=== PATIENT | female | born 1990 | race Caucasian/White ===

== ENCOUNTER 2017-01-21 11:04 | Outpatient (CLI) | payer OTHER | END 2017-01-21 11:05 | disposition home or self-care (01) | LOC: LAB 11:04 | PROVIDERS: ATTEND Internal Medicine | DX: Z02.1 Encounter for pre-employment examination (principal) | CPT/HCPCS: 36415 ==

== ENCOUNTER 2017-01-28 10:39 | Outpatient (CLI) | payer OTHER | END 2017-01-28 10:40 | disposition home or self-care (01) | LOC: LAB 10:39 | PROVIDERS: ATTEND Internal Medicine | DX: Z28.3 Underimmunization status (principal) | CPT/HCPCS: 36415; 86735; 86762; 86765 ==

== ENCOUNTER 2018-01-15 14:29 | Outpatient (CLI) | payer SELFPAY | END 2018-01-15 14:30 | disposition home or self-care (01) | LOC: LAB 14:29 | PROVIDERS: ATTEND Emergency Medicine | DX: Z11.1 Encounter for screening for respiratory tuberculosis (principal) | CPT/HCPCS: 36415; 81599; 86480 ==

== ENCOUNTER 2018-06-13 08:00 | Outpatient (CLI) | payer BC | END 2018-06-13 23:59 | disposition home or self-care (01) | LOC: EDBD → EDSEX → LAB.R 08:00 → MERGE 14:10 → LAB.R 23:59 | PROVIDERS: ATTEND Internal Medicine | DX: J02.9 Acute pharyngitis, unspecified (principal) | CPT/HCPCS: 87070; 87430 ==

== ENCOUNTER 2019-02-24 07:16 | Outpatient (CLI) | payer BC ==
--- NOTE | 2019-02-26 07:34 | Ultrasound Report ---
Reason: POSITIVE TEST Procedure Date: 02/24/2019 Accession Number: [id number] / [id number] Procedure: US - OB First Trimester CPT Code: FULL RESULT: EXAM: FIRST TRIMESTER OBSTETRIC ULTRASOUND (Less than 11 weeks) EXAM DATE: 02/24/2019 07:21 AM. CLINICAL HISTORY: Positive test. LMP: 12/22/2018. COMPARISONS: None. TECHNIQUE: Transabdominal and transvaginal ultrasound examination with static image documentation. CLINICAL DATES: EGA 9 weeks 1 day with HENRIQUE 09/28/2019 based on LMP of 12/22/2018. ASSESSMENT: Gestational Sac: Single intrauterine. Embryo: CRL (crown-rump length) 7.7 mm = 6 weeks 5 days with an HENRIQUE of 10/15/2019. Cardiac activity: 131 beats per minute. Yolk sac: 3.2 mm. Amniotic fluid: Not accurately assessed at this gestational age. Early placenta: Not visible at this gestational age. Other: No perigestational fluid collection demonstrated. MATERNAL STRUCTURES: Uterus: Anteverted. Unremarkable. Cervix: Closed. Right Ovary/Adnexa: The ovary measures 4.2 x 2.2 x 2.7 cm, volume 13.0 cc. Unremarkable. Left Ovary/Adnexa: The ovary measures 3.5 x 2.2 x 2.1 cm, volume 8.5 cc. Unremarkable. Free Fluid: None. Other: None. IMPRESSION: 1. Single viable intrauterine at EGA 6 weeks 5 days with HENRIQUE 10/15/2019 based on crown-rump length, which is discordant with clinical dates. 2. Assigned dating is HENRIQUE 10/15/2019 based on current ultrasound. 3. No subchorionic hemorrhage or other complications. 4. Normal bilateral ovaries and adnexa. RADIA
== END 2019-02-24 07:17 | disposition home or self-care (01) ==
LOC: DI 07:16
PROVIDERS: ATTEND Nurse Practitioner Obstetrics & Gynecology
DX: Z32.01 Encounter for pregnancy test, result positive (principal)
CPT/HCPCS: 76801

== ENCOUNTER 2019-03-09 07:00 | Outpatient (CLI) | payer BC ==
[2019-03-09 14:53] LABS: MUDS CUTOFF CONCENTRATIONS CUTOFF CONC BELOW:
[2019-03-09 15:04] LABS: BILIRUBIN,URINE NEGATIVE (NEGATIVE); GLUCOSE, URINE (UA) NEGATIVE (NEGATIVE); KETONES,URINE (UA) NEGATIVE (NEGATIVE); LEUKOCYTE ESTERASE, URINE NEGATIVE (NEGATIVE); NITRITE,URINE NEGATIVE (NEGATIVE); OCCULT BLOOD,URINE NEGATIVE (NEGATIVE); PROTEIN,URINE NEGATIVE (NEGATIVE); UROBILINOGEN,URINE 0.2 (NORMAL) E.U./dL (NORMAL)
[2019-03-09 15:05] LABS: CLARITY,URINE CLEAR (CLEAR)
[2019-03-09 15:32] LABS: AMPHETAMINE SCREEN,URINE NEGATIVE (NEGATIVE); BENZODIAZEPINES SCREEN, URINE NEGATIVE (NEGATIVE); COCAINE SCREEN URINE NEGATIVE (NEGATIVE); METHADONE SCREEN, URINE NEGATIVE (NEGATIVE); METHAMPHETAMINES SCREEN, URINE NEGATIVE (NEGATIVE); OPIATE SCREEN, URINE NEGATIVE (NEGATIVE); OXYCODONE SCREEN, URINE NEGATIVE (NEGATIVE); PROPOXYPHENE SCREEN, URINE NEGATIVE (NEGATIVE); TRICYCLIC ANTIDEPRESSANT,URINE NEGATIVE (NEGATIVE)
[2019-03-09 15:44] LABS: BACTERIA,URINE Few /HPF (None Seen); RBC,URINE 0-5 /HPF (0-5); SQUAMOUS EPITHELIAL CELL,UR MANY Squamous (<= Few)
[2019-03-09 15:45] LABS: MUCUS,URINE Few Strands
== END 2019-03-09 23:59 | disposition home or self-care (01) ==
LOC: LAB.R 07:00
PROVIDERS: ATTEND Nurse Practitioner Obstetrics & Gynecology
DX: Z36.89 Encounter for other specified antenatal screening (principal)
CPT/HCPCS: 80306; 81001; 87086

== ENCOUNTER 2019-04-06 18:45 | Outpatient (CLI) | payer BC ==
[2019-04-06 19:55] LABS: BASOPHILS % (AUTO) 0.3 %; EOSINOPHILS # (AUTO) 0.2 10^3/uL (0.0-0.7); HGB - HEMOGLOBIN 12.4 g/dL (12.0-16.0); LYMPHOCYTES # (AUTO) 3.1 10^3/uL (1.5-3.5); LYMPHOCYTES % (AUTO) 41.7 %; MEAN CORPUSCULAR HEMOGLOBIN 29.5 pg (27.0-31.0); MEAN CORPUSCULAR HGB CONC 33.4 g/dL (32.0-36.0); MEAN CORPUSCULAR VOLUME 88.3 fL (81.0-99.0); MEAN PLATELET VOLUME 10.6 fL (7.9-10.8); MONOCYTES # (AUTO) 0.4 10^3/uL (0.0-1.0); NEUTROPHILS # (AUTO) 3.7 10^3/uL (1.5-6.6); NEUTROPHILS % (AUTO) 49.7 %; PLT - PLATELET COUNT 162 10^3/uL (130-450); RED CELL DISTRIBUTION WIDTH 12.7 % (12.0-15.0); WHITE BLOOD COUNT 7.3 x10^3/uL (4.8-10.8)
[2019-04-08 12:31] LABS: HEPATITIS B SURFACE ANTIGEN NON-REACTIVE (NON-REACTIVE)
[2019-04-08 15:31] LABS: HIV AG/AB 4TH GEN NON-REACTIVE (NON-REACTIVE)
== END 2019-04-06 18:46 | disposition home or self-care (01) ==
LOC: LAB 18:45
PROVIDERS: ATTEND Nurse Practitioner Obstetrics & Gynecology
DX: Z82.79 Family history of other congenital malformations, deformations and chromosomal abnormalities (principal); Z36.89 Encounter for other specified antenatal screening
CPT/HCPCS: 36415; 81599; 85025; 86592; 86762; 86850; 86900; 86901; 87340; 87389; 87522

== ENCOUNTER 2019-05-01 17:43 | Outpatient (CLI) | payer BC | END 2019-05-01 17:44 | disposition home or self-care (01) | LOC: LAB 17:43 | PROVIDERS: ATTEND Nurse Practitioner Obstetrics & Gynecology | DX: Z82.79 Family history of other congenital malformations, deformations and chromosomal abnormalities (principal); Z36.89 Encounter for other specified antenatal screening | CPT/HCPCS: 36415; 81511; 81599 ==

== ENCOUNTER 2019-06-09 09:35 | Outpatient (CLI) | payer BC ==
--- NOTE | 2019-06-09 11:39 | Ultrasound Report ---
Reason: Z36.89 Procedure Date: 06/09/2019 Accession Number: [id number] / [id number] Procedure: US - OB Detailed Eval CPT Code: Final Report FULL RESULT: EXAM: COMPLETE OBSTETRICAL ULTRASOUND EXAM DATE: 06/09/2019 11:13 AM. CLINICAL HISTORY: anatomic survey. COMPARISON: OB FIRST TRIMESTER 02/24/2019 7:21 AM. TECHNIQUE: Real-time sonographic evaluation of the fetus performed by the blunger. Multiple business office representative static images were saved for review. DATING: Established EGA 24 weeks 1 day with HENRIQUE 09/28/2019 based on provided working due date. EGA 21 weeks 5 days with HENRIQUE 10/15/2019 based on first ultrasound. EGA 22 weeks 0 days with HENRIQUE 10/13/2019 based on the current ultrasound. GENERAL EVALUATION Thrasher . Cardiac activity: 155 bpm. movement: Visualized. Presentation: Cephalic. Placenta: Posterior position. No evidence for previa. Umbilical cord: 3 vessel cord. Central placental cord origin. Amniotic fluid: Subjectively normal. MVP 4.4 cm with JACK 12.7 cm. BIOMETRY Bi-Parietal Diameter (BPD): 5.2 cm, 21 weeks 5 days Head Circumference (HC): 19.6 cm, 21 weeks 6 days Abdominal Circumference (AC): 17.1 cm, 22 weeks 0 days Femur Length (FL): 3.8 cm, 22 weeks 2 days Estimated Weight: 474 g, 63rd percentile for 24 weeks 1 day. ANATOMY The intracranial structures, profile, face/nose/lips, spine, 4 chamber heart and outflow tracts, stomach, abdominal wall and cord insertion, diaphragm, kidneys, bladder, and extremities were visualized and demonstrate no abnormality. MATERNAL STRUCTURES Uterus: Unremarkable. Cervix: Long and closed. Transabdominal length 4.6 cm. Right ovary/adnexa: Unremarkable. Left ovary/adnexa: Unremarkable. Free fluid: None. IMPRESSION: 1. Thrasher live intrauterine with gestational age 24 weeks 1 day based on provider stated working due date. 2. Estimated weight is within expected limits for assigned dating. 3. Normal anatomic survey. No anatomic abnormalities are detected at this time. RADIA
== END 2019-06-09 09:36 | disposition home or self-care (01) ==
LOC: DI 09:35
PROVIDERS: ATTEND Nurse Practitioner Obstetrics & Gynecology
DX: Z36.89 Encounter for other specified antenatal screening (principal)
CPT/HCPCS: 76811

== ENCOUNTER 2019-07-28 10:38 | Outpatient (CLI) | payer BC ==
[2019-07-28 12:38] LABS: HGB - HEMOGLOBIN 12.9 g/dL (12.0-16.0); MEAN CORPUSCULAR HEMOGLOBIN 31.1 pg (27.0-31.0); MEAN CORPUSCULAR HGB CONC 33.6 g/dL (32.0-36.0); MEAN CORPUSCULAR VOLUME 92.5 fL (81.0-99.0); MEAN PLATELET VOLUME 11.4 fL (7.9-10.8); RED BLOOD COUNT 4.15 10^6/uL (4.20-5.40); RED CELL DISTRIBUTION WIDTH 13.3 % (12.0-15.0)
== END 2019-07-28 23:59 | disposition home or self-care (01) ==
LOC: LAB.WCP 10:38
PROVIDERS: ATTEND Nurse Practitioner Obstetrics & Gynecology
DX: Z36.89 Encounter for other specified antenatal screening (principal)
CPT/HCPCS: 36415; 82950; 85027; 86850

== ENCOUNTER 2019-09-16 15:43 | Outpatient (CLI) | payer BC ==
[2019-09-16 22:02] LABS: TRICHOMONAS VAGINALIS DNA NEGATIVE (NEGATIVE)
== END 2019-09-16 23:59 | disposition home or self-care (01) ==
LOC: LAB.R 15:43
PROVIDERS: ATTEND Advanced Practice Midwife
DX: Z34.90 Encounter for supervision of normal pregnancy, unspecified, unspecified trimester (principal); Z36.85 Encounter for antenatal screening for Streptococcus B
CPT/HCPCS: 87081; 87491; 87591; 87661; 87797

== ENCOUNTER 2019-10-13 09:58 | Outpatient (CLI) | payer BC ==
[2019-10-13 11:47] LABS: BASOPHILS % (AUTO) 0.3 %; LYMPHOCYTES % (AUTO) 26.7 %; MEAN CORPUSCULAR HEMOGLOBIN 29.8 pg (27.0-31.0); MEAN CORPUSCULAR VOLUME 90.2 fL (81.0-99.0); MEAN PLATELET VOLUME 11.9 fL (7.9-10.8); MONOCYTES % (AUTO) 5.3 %; PLT - PLATELET COUNT 125 10^3/uL (130-450); RED CELL DISTRIBUTION WIDTH 13.2 % (12.0-15.0); WHITE BLOOD COUNT 7.5 x10^3/uL (4.8-10.8)
[2019-10-13 11:49] LABS: ABNORMAL LYMPHS % (MANUAL) 0 %
[2019-10-13 11:55] LABS: CREATININE,URINE 75.6 mg/dL; PROTEIN/CREATININE RATIO,URINE 0.2 (<=0.2)
[2019-10-13 11:56] LABS: ALBUMIN 3.4 g/dL (3.2-5.5); ALBUMIN/GLOBULIN RATIO 1.1 (1.0-2.2); BILIRUBIN,TOTAL 1.4 mg/dL (0.2-1.0); CALCIUM 9.3 mg/dL (8.5-10.3); CREATININE 0.6 mg/dL (0.4-1.0); TOTAL PROTEIN 6.6 g/dL (6.7-8.2); URIC ACID 7.1 mg/dL (2.6-7.2)
[2019-10-13 12:19] LABS: BAND NEUTROPHILS % (MANUAL) 1 %; DIFFERENTIAL COMMENT MANUAL DIFFERENTIAL; EOSINOPHILS # (MANUAL) 0.2 10^3/uL (0-0.7); LYMPHOCYTES # (MANUAL) 2.1 10^3/uL (1.5-3.5); LYMPHOCYTES % (MANUAL) 28 %; MONOCYTES # (MANUAL) 0.4 10^3/uL (0.0-1.0); PLATELET ESTIMATE, MANUAL NORMAL (130-450,000) (NORMAL); PLATELET MORPHOLOGY NORMAL APPEARANCE (NORMAL); RBC MORPHOLOGY (MULTIPLE) NORMAL APPEARANCE (NORMAL)
[2019-10-13 13:06] VITALS: BP 126/81
--- NOTE | 2019-10-13 17:38 | Ultrasound Report ---
Reason: Elevated BP in office, drop in growth Procedure Date: 10/13/2019 Accession Number: [id number] / [id number] Procedure: US - OB Biophysical Profile CPT Code: Final Report FULL RESULT: PROCEDURE: OB Biophysical Profile INDICATIONS: Elevated BP in office, drop in growth OUTSIDE/PRIOR DATING DATA: Last menstrual period (LMP): 12/22/2018. LMP-based estimated date of delivery (HENRIQUE): 09/28/2019. First dating scan (date and location): 02/24/2019. Estimated date of delivery (HENRIQUE) from first dating scan: 10/15/2019. TECHNIQUE: Real-time scanning was performed of the fetus, with image documentation and biometric measurements. Biophysical profile was also obtained. COMPARISON: 06/09/2019, 02/24/2019. FINDINGS: General: A single living intrauterine gestation is present. Presentation: Vertex, with spine to maternal left. Placenta: Placental position is posterior, without previa. Amniotic fluid index: 5 cm, at the 1st percentile for gestational age. heart rate: 141 beats per minute. Maternal cervical canal: Not well seen. biometrics: Biparietal diameter: 9.6 cm, 39 weeks 2 days Head circumference: 34.5 cm, 39 weeks 6 days Abdominal circumference: 35.7 cm, 39 weeks 4 days Femur length: 7.1 cm, 36 weeks 3 days Estimated gestational age from initial scan: 39 weeks 5 days Composite gestational age from present scan: 30 weeks 6 days Estimated weight and percentile: 3006 and 47 g, 57th percentile Measurement variability in biometric dating: +/- 10 days from 12-20 weeks gestation, +/- 2 weeks from 20-30 weeks gestation, +/- 3 weeks at 30 weeks gestation or later. Biophysical profile: Tone: 2 points. Movement: 2 points. Respiration: 2 points. Largest pocket of fluid: 2 points, largest pocket 2.8 cm. IMPRESSION: 1. Single living intrauterine demonstrating appropriate interval growth with estimated weight at the 57th percentile. 2. Biophysical profile score of 8/8. 3. Decreased amniotic fluid index measuring approximately 5 cm. Recommend correlation clinically. Reviewed by: Moncho Patel MD on 10/13/2019 12:39 PM PDT Approved by: Moncho Patel MD on 10/13/2019 12:39 PM PDT Station ID: [id number]
--- NOTE | 2019-10-13 17:43 | Ultrasound Report ---
Reason: Elevated BP in office, drop in growth Procedure Date: 10/13/2019 Accession Number: [id number] / [id number] Procedure: US - OB F/U or Repeat CPT Code: Final Report FULL RESULT: PROCEDURE: OB Biophysical Profile INDICATIONS: Elevated BP in office, drop in growth OUTSIDE/PRIOR DATING DATA: Last menstrual period (LMP): 12/22/2018. LMP-based estimated date of delivery (HENRIQUE): 09/28/2019. First dating scan (date and location): 02/24/2019. Estimated date of delivery (HENRIQUE) from first dating scan: 10/15/2019. TECHNIQUE: Real-time scanning was performed of the fetus, with image documentation and biometric measurements. Biophysical profile was also obtained. COMPARISON: 06/09/2019, 02/24/2019. FINDINGS: General: A single living intrauterine gestation is present. Presentation: Vertex, with spine to maternal left. Placenta: Placental position is posterior, without previa. Amniotic fluid index: 5 cm, at the 1st percentile for gestational age. heart rate: 141 beats per minute. Maternal cervical canal: Not well seen. biometrics: Biparietal diameter: 9.6 cm, 39 weeks 2 days Head circumference: 34.5 cm, 39 weeks 6 days Abdominal circumference: 35.7 cm, 39 weeks 4 days Femur length: 7.1 cm, 36 weeks 3 days Estimated gestational age from initial scan: 39 weeks 5 days Composite gestational age from present scan: 30 weeks 6 days Estimated weight and percentile: 3006 and 47 g, 57th percentile Measurement variability in biometric dating: +/- 10 days from 12-20 weeks gestation, +/- 2 weeks from 20-30 weeks gestation, +/- 3 weeks at 30 weeks gestation or later. Biophysical profile: Tone: 2 points. Movement: 2 points. Respiration: 2 points. Largest pocket of fluid: 2 points, largest pocket 2.8 cm. IMPRESSION: 1. Single living intrauterine demonstrating appropriate interval growth with estimated weight at the 57th percentile. 2. Biophysical profile score of 8/8. 3. Decreased amniotic fluid index measuring approximately 5 cm. Recommend correlation clinically. Reviewed by: Moncho Patel MD on 10/13/2019 1:01 PM PDT Approved by: Moncho Patel MD on 10/13/2019 1:01 PM PDT Station ID: [id number]
--- NOTE | 2019-10-14 17:16 | PROCEDURE REPORT ---
- HPI Diagnosis/Indication for NST: Other (29yo at 39.5 wks Size less than dates; low-normal baseline heartrate in office) Current EDU 10/15/19 Gestation 39 Weeks and 5 Days 2 Para 0 Vital Signs Temperature 36.8 C 10/13/19 10:06 Heart Rate 82 10/13/19 10:06 Respiratory Rate 18 10/13/19 10:06 Blood Pressure 123/88 H 10/13/19 10:06 O2 Saturation 98 10/13/19 10:06 Temperature 36.8 C 10/13/19 10:06 Heart Rate 83 10/13/19 13:06 Respiratory Rate 18 10/13/19 13:06 Blood Pressure 126/81 H 10/13/19 13:06 O2 Saturation 97 10/13/19 13:06 - NST Procedure NST Procedure Start Date 10/13/19 Start Time 10:04 Stop Time 10:42 Vibroacoustic Stimulation Used No Patient States Movement Yes - Results and Plan Findings/Impression: NST performed 10/13/2019 NST Read 10/13/2019 NST Impression: Reassuring Baseline 120s, mod variability, accels 15x15, no decels Plan: BPP with NST 12/18 Growth US reveals EFW 57% JACK 1% (5) - Oligohydramnios Recommended follow up within 48 hours
== END 2019-10-13 13:00 | disposition home or self-care (01) ==
LOC: WFO 09:58 → FBP 10:05 → WFO 13:00
PROVIDERS: ATTEND Advanced Practice Midwife
DX: O36.8330 Maternal care for abnormalities of the fetal heart rate or rhythm, third trimester, not applicable or unspecified (principal); O36.5930 Maternal care for other known or suspected poor fetal growth, third trimester, not applicable or unspecified; Z3A.39 39 weeks gestation of pregnancy
CPT/HCPCS: 36415; 59025; 76816; 76819; 80053; 82570; 84156; 84550; 85025

== ENCOUNTER 2019-10-15 10:08 | Outpatient (CLI) | payer BC ==
[2019-10-15 11:01] VITALS: BP 125/84
--- NOTE | 2019-10-15 13:34 | PROCEDURE REPORT ---
- HPI Diagnosis/Indication for NST: Oligohydramnios Current EDU 10/15/19 Gestation 40 Weeks and 0 Days 2 Para 0 Vital Signs Temperature 36.9 C 10/15/19 10:13 Heart Rate 92 10/15/19 10:13 Respiratory Rate 10/15/19 10:13 Blood Pressure 126/90 H 10/15/19 10:13 O2 Saturation 98 10/15/19 10:13 Temperature 36.9 C 10/15/19 10:13 Heart Rate 92 10/15/19 10:13 Respiratory Rate 10/15/19 10:13 Blood Pressure 125/84 H 10/15/19 10:48 O2 Saturation 98 10/15/19 10:13 - NST Procedure NST Procedure Start Date 10/15/19 Start Time 10:18 Stop Time 10:49 Vibroacoustic Stimulation Used No Patient States Movement Yes - Results and Plan Findings/Impression: 29yo at 40.0 wks gestation presents for follow up for Oligiohydramnios NST performed 10/15/2019 NST Read 10/15/2019 NST Impression: Reassuring Baseline 125s, mod variability, accels 15x15, no decels Plan: BPP with NST 12/18 Growth US reveals EFW 57% JACK 10.5 - Normal findings Recommended follow up at regular OB visit 10/19/2019
--- NOTE | 2019-10-16 14:31 | Ultrasound Report ---
Reason: oligohydramnios Procedure Date: 10/15/2019 Accession Number: [id number] / [id number] Procedure: US - OB Limited CPT Code: Final Report FULL RESULT: PROCEDURE: OB Limited INDICATIONS: oligohydramnios OUTSIDE/PRIOR DATING DATA: Last menstrual period (LMP): 12/22/2018. LMP-based estimated date of delivery (HENRIQUE): 09/18/2019. First dating scan (date and location): 02/24/2019. Estimated date of delivery (HENRIQUE) from first dating scan: 10/15/2019. TECHNIQUE: Real-time scanning was performed of the fetus, with image documentation. Endovaginal scanning: Not needed for this examination. COMPARISON: Prior OB ultrasound studies for this . FINDINGS: A single living intrauterine gestation is present. Presentation: Vertex spine maternal right Placenta: No placenta previa. Amniotic fluid index: 10.5 cm, normal for gestational age. heart rate: 136 beats per minutes. Maternal cervical canal: Not seen due to vertex presentation of the fetus. Estimated gestational age from initial scan: Term gestation. Biophysical profile: / possible points. IMPRESSION: Normal amniotic fluid volume, normal biophysical profile. Term gestation. Reviewed by: Axel Hernandez MD on 10/16/2019 2:30 PM PDT Approved by: Axle Hernandez MD on 10/16/2019 2:30 PM PDT Station ID: [id number]
--- NOTE | 2019-10-16 14:36 | Ultrasound Report ---
Reason: low JACK Procedure Date: 10/16/2019 Accession Number: [id number] / [id number] Procedure: US - OB Biophysical Profile CPT Code: Final Report FULL RESULT: PROCEDURE: OB Biophysical Profile INDICATIONS: low JACK OUTSIDE/PRIOR DATING DATA: Last menstrual period (LMP): 12/22/2018. LMP-based estimated date of delivery (HENRIQUE): 09/28/2019. First dating scan (date and location): 02/24/2019. Estimated date of delivery (HENRIQUE) from first dating scan: 10/15/2019. TECHNIQUE: Real-time scanning was performed of the fetus, with image documentation and biometric measurements. Biophysical profile was also obtained. Endovaginal scanning: Not needed COMPARISON: Prior OB ultrasound studies for this .. FINDINGS: General: A single living intrauterine gestation is present. Presentation: Vertex spine maternal right Amniotic fluid index: 10.5 cm, normal for gestational age. heart rate: 136 beats per minute. Maternal cervical canal: Not seen due to vertex presentation. Biophysical profile: Tone: 2 points. Movement: 2 points. Respiration: 2 points. Largest pocket of fluid: 2 points. IMPRESSION: Normal biophysical profile. Normal amniotic fluid. Reviewed by: Axel Hernandez MD on 10/16/2019 2:35 PM PDT Approved by: Axel Hernandez MD on 10/16/2019 2:35 PM PDT Station ID: [id number]
== END 2019-10-15 12:32 | disposition home or self-care (01) ==
LOC: WFO 10:08 → FBP 10:09 → WFO 12:32
PROVIDERS: ATTEND Advanced Practice Midwife
DX: O41.03X0 Oligohydramnios, third trimester, not applicable or unspecified (principal); Z3A.40 40 weeks gestation of pregnancy
CPT/HCPCS: 59025; 76815; 76819

== ENCOUNTER 2019-10-20 21:53 | Inpatient (IN) | payer BC ==
[2019-10-20] MEDS ORDERED: ONDANSETRON ODT 4 MG TABLET TL PRN ×3 (22:33→22:43)
[2019-10-20] MEDS ORDERED: fentaNYL 100 MCG/2 ML VIAL IVP PRN (23:13)
[2019-10-20] MEDS ORDERED: ONDANSETRON 4 MG/2 ML VIAL IVP PRN (23:13)
[2019-10-20] MEDS ORDERED: SODIUM CHLORIDE FLUSH 0.9% 10 ML SYRINGE IVP PRN (23:13)
[2019-10-20] MEDS ORDERED: LACTATED RINGERS 1,000 ML IV SCH (23:45)
[2019-10-21] LABS: BASOPHILS % (AUTO) 0.2 %; EOSINOPHILS # (AUTO) 0.1 10^3/uL (0.0-0.7); HGB - HEMOGLOBIN 15.3 g/dL (12.0-16.0); LYMPHOCYTES # (AUTO) 2.5 10^3/uL (1.5-3.5); LYMPHOCYTES % (AUTO) 18.6 %; MEAN CORPUSCULAR HEMOGLOBIN 31.2 pg (27.0-31.0); MEAN CORPUSCULAR HGB CONC 34.5 g/dL (32.0-36.0); MEAN CORPUSCULAR VOLUME 90.6 fL (81.0-99.0); MEAN PLATELET VOLUME 11.9 fL (7.9-10.8); MONOCYTES # (AUTO) 0.5 10^3/uL (0.0-1.0); MONOCYTES % (AUTO) 3.3 %; NEUTROPHILS # (AUTO) 10.3 10^3/uL (1.5-6.6); NEUTROPHILS % (AUTO) 76.1 %; PLT - PLATELET COUNT 141 10^3/uL (130-450); RED CELL DISTRIBUTION WIDTH 13.1 % (12.0-15.0); WHITE BLOOD COUNT 13.5 x10^3/uL (4.8-10.8)
[2019-10-21] MEDS ORDERED: OXYTOCIN/SODIUM CHLORIDE 500 ML IV ONE (00:33)
[2019-10-21] MEDS ORDERED: LIDOCAINE-MPF 1% 30 ML VIAL ONE (00:33)
[2019-10-21] MEDS ORDERED: SODIUM CHLORIDE FLUSH 0.9% 10 ML SYRINGE IVP SCH (01:00)
--- NOTE | 2019-10-21 01:52 | HISTORY & PHYSICAL EXAMINATION ---
Admit History - Visit Reason Visit Reason: Contractions - : 2 Parity: 0 Premature: 0 Ectopic: 0 : 1 Care: positive: [facility] Risk/History: positive: None Complications This : positive: None Smoking Status: Never smoker - Mother's Labs Mother's Blood Type: positive: O Mother's RH: positive: Positive GBS: positive: Group B Step Negative Rubella Status: positive: Immune - Other Maternal History Other Maternal History: Nancy is a 29yo at 40.5wks who presented with complaints of contractions Gestation was determined by US at 6.5wks disconcordant with LMP dating and gives HENRIQUE 10/14/2018 Ctx- every 2-4mins/FHTs 120s moderate variability, accels, no decels/+FM/-VB/-LOF Care- with [facility] and was adequate and uneventful complications- none OB Hx G1: 2014 TAB G2- Current Medications- ZYRTEC ALLERGY 10 MG ORAL CAPSULE (CETIRIZINE HCL) ; Route: ORAL PRE-MARIANO FORMULA ORAL TABLET ( [id number]) Take one tablet by mouth once a day; Route: ORAL Allergies PENICILLIN V POTASSIUM (Critical) DOXYCYCLINE (Critical) SULFA (Severe) Medical History non contributory Surgical History tonsilectomy Family History Uncle with Down's Syndrome Social History- never smoker, no etoh, spouse/fob- present and supportive Labs *O positive * rubella immune * Genetic- Serum integrated screen- negative * GBS- negative * Glucola- 95 Immunizations *TDAP 07/28/2019 SVE AT 0100 6/90/0/soft/ant/intact Vertex by digital exam Assessment 29yo at 40.5wks gestation in active labor Plan Admit Evens&D Monitoring- Intermittent per protocol Comfort measures available- whirlpool tub, fentanyl, and epidural Diet/Activity- per pt preference Anticipate Review of Systems - Constitutional Constitutional: reports: Fatigue. denies: Malaise, Weakness, Diaphoresis - Eyes Eyes: denies: Pain, Spots in vision, Field loss, Dipolpia - Ears, Nose & Throat Ears, Nose & Throat: denies: Hearing loss, Vertigo, Nasal discharge, Nasal congestion - Gastrointestinal Gastrointestinal: reports: Diarrhea, Nausea, Vomiting. denies: Constipation - Genitourinary Genitourinary: denies: Dysuria, Frequency, Hematuria, Flank pain - Musculoskeletal Musculoskeletal: reports: Back pain - Integumentary Integumentary: denies: Rash, Pruritis, Lesions - Neurological Neurological: denies: Headache, Dizziness, Numbness - Psychiatric Psychiatric: denies: Depression, Suicidal - Endocrine Endocrine: denies: Polyuria, Polydypsia - All Other Systems All Other Systems: denies: Reviewed and negative Physical - Abdominal Exam Vital Signs: Temp Pulse Resp BP Pulse Ox 36.8 C 10/20/19 23:25 Contraction Frequency (min/apart): 2-3 Contraction Intensity: positive: Strong Uterine Resting Tone: positive: Soft - Monitoring Heart Rate Baseline: 120 Strip Review: positive: Category I - Presentation Presentation: positive: Vertex - Vaginal Exam Membranes: positive: Membranes intact Dilation (in cm): 6 Effacement (%): 90 Station: positive: 0 Cervical Position: positive: Midposition - Speculum Exam Speculum Exam Performed: positive: No Plan for Labor - Plan For Labor I expect patient to be DC'd or transferred within 96 hours.: Yes
[2019-10-21] MEDS ORDERED: OXYTOCIN/SODIUM CHLORIDE 500 ML IV PRN (03:15)
[2019-10-21] MEDS ORDERED: HYDROCORTISONE 1% CREAM 28 GM TUBE PR PRN (04:06)
[2019-10-21] MEDS ORDERED: WITCH HAZEL/GLYCERIN 1 PAD TOP PRN (04:06)
--- NOTE | 2019-10-21 04:18 | DELIVERY NOTE ---
Delivery Note - Labor Labor: positive: Spontaneous - Delivery Method Delivery Method: positive: Spontaneous vaginal delivery - Presentation Presentation: positive: Vertex, MARILOU - left occiput anterior - Nuchal Cord Nuchal Cord: positive: None - Amniotic Fluid Description Amniotic Fluid Description: positive: Clear - Laceration Laceration: positive: 2nd degree - Suture Suture Type: positive: Vicryl Suture Size: positive: 2-0, 3-0 - Delivery Outcome Delivery Outcome: positive: Livebirth - : positive: Placed in direct skin contact with mother, Stimulated, Warmed, Holden used sex: positive: Female : 9 : 9 - Cord Cord: positive: 3 vessels - Placenta Placenta: positive: Intact, Spontaneous - Estimated Blood Loss Estimated Blood Loss (in cc): 300 - Post Delivery Events Post Delivery Events: positive: No post delivery events - Delivery Comments (Free Text/Narrative) Delivery Comments (Free Text/Narrative): Note: Labor: This 29 year old, , @40.5wks gestation by 6.5week Ultrasound, discordant with LMP, presented in active labor. Cervix was 2/80/-1 and vertex. FHR pattern demonstrated 120 baseline in a Category I pattern. Normal labor course. Moderate bloody show. SROM occurred @ 0236 and amount and color of fluid were noted to be scant and clear with bloody coloration. Progressed to c/c/+1 at 0248 and began spontaneously pushing. : Normal of a female infant on 10/21/2019 @ 0307. Nuchal not present. The was passed through maternal legs, as she was hands/knees for , then stimulated, dried and placed skin to skin. Apgars 9 at one minute and 9 at five minutes. The umbilical cord was allowed to stop pulsating at which time it was doubly clamped by CNM and cut by FOB. Pitocin administered via IV for hemostasis. . Fundal massage and gentle cord traction applied for active third stage management. Cord blood was obtained. Placenta delivered spontaneously and intact at 0318. Three vessel cord. EBL 300mL. Fourth Stage: Uterine fundus firm and without excessive bleeding. The perineum, vagina, and cervix were inspected and found to have a second degree perineal tear which was repaired with a 2-0 vicryl and bilateral first degree labial tears which were repaired with 3-0 vicryl. Lidocaine was used for anesthesia and repair was performed in standard fashion under sterile conditions. Vaginal examination following repair was done. Tissues well approximated. initiated. Family bonding well. Both mother and baby are in stable condition.
[2019-10-21] MEDS: IBUPROFEN 600 MG TABLET PO SCH ×4 (04:37→22:45)
[2019-10-21] MEDS: ACETAMINOPHEN 325 MG TABLET PO PRN ×4 (04:37→22:45)
[2019-10-21] MEDS ORDERED: LIDOCAINE-MPF 1% 30 ML VIAL TOP ONE (08:00)
[2019-10-21] MEDS: DOCUSATE SODIUM 100 MG CAPSULE PO SCH (10:16)
[2019-10-22] MEDS: ACETAMINOPHEN 325 MG TABLET PO PRN ×2 (05:29→11:51)
[2019-10-22] MEDS: IBUPROFEN 600 MG TABLET PO SCH ×2 (05:29→11:51)
--- NOTE | 2019-10-22 08:20 | Discharge Plan ---
Discharge Plan Problem Reviewed?: Yes Disposition: Home, Self Care Condition: Good Diet: Regular Activity Restrictions: No Restrictions Shower Restrictions: No Driving Restrictions: No Weight Bearing: Full Weight Plan of Treatment: Come see me at 1, 3, and 6 weeks No Smoking: If you smoke, Please STOP! Call for help. Follow-up with: Gracia Reed ARNP [Provider Admit Priv/Credential] -
--- NOTE | 2019-10-22 08:23 | PROVIDER PROGRESS NOTE ---
Subjective - Prog Note Date Prog Note Date: 10/22/19 Prog Note Time: 07:00 - Subjective Pt reports feeling: Improved Subjective: S: Nancy is ambulating in the room. Reports tenderness in her bottom which is relieved with PO NSAIDS. is going well and she desires to go home today. O: VSS Perineum healing well Lochia rubra- moderate Fundus firm A: 29yo on day 1 following an Regular course P: Continue with routine care Evaluate for discharge home today. Objective - Vital Signs/Intake & Output Vital Signs: Vital Signs x48h Temp Pulse Resp BP Pulse Ox 10/22/19 05:00 36.6 C 91 16 126/91 H 98 Intake & Output: Intake & Output 10/19/19 10/20/19 10/21/19 10/22/19 23:59 23:59 23:59 23:59 Intake Total 500 Output Total 600 Balance -100 - Lab Results Fish Bones: 10/20/19 23:50
--- NOTE | 2019-10-22 08:28 | DISCHARGE SUMMARY ---
Discharge Summary Admit Date: 10/20/19 Discharge Date: 10/22/19 Discharging Provider: demario calvert CNJia Code Status: Attempt Resuscitation Condition at Discharge: Good Discharge Disposition: 01 Home, Self Care - HPI History of Present Illness: Admit Date: 10/20/2019 Discharge Date 10/22/2019 Diagnosis on Admission: 1. A 29yo at 40.5 week intrauterine 2. Early Active Labor Diagnosis on Discharge 1. A 29yo s/p spontaneous vaginal delivery on 10/21/2019 2. Normal recovery Brief History: She is a patient at [facility] who presented on 10/20/2019 near midnight with complaints of contractions. The patient was found to contract every 1 to 3 minutes and her cervix was 4-5cm dilated, 80%effaced, and -1 station. She delivered a viable female named Aidee Borjas. Apgars were 9 and 9- and 1 and 5 minutes respectively. EBL 300 mL. The patient has a 2nd degree laceration that was repaired with 2-0 and 3-0 vicryl in usual fashion under sterile conditions. She has been doing well in her course. She is ambulating and tolerating a regular diet. She is urinating without difficulty and her lochia is normal. Her pain is well controlled with oral medications. She will be discharged home today on day #1 with prescriptions for ibuprofen and colace. She intends to follow up with myself at [facility] in 1, 3, and 6 weeks for routine visit. She has been given precautions to call if she has any worsening fevers, chills, abdominal pain, increased bleeding or foul smelling vaginal lochia. - ALLERGIES Allergies/Adverse Reactions: Allergies Allergy/AdvReac Type Severity Reaction Status Date / Time doxycycline Allergy Unknown Verified 10/21/19 08:12 Penicillins Allergy Unknown Verified 10/21/19 08:12 Sulfa (Sulfonamide Allergy Unknown Verified 10/21/19 08:12 Antibiotics) - LABS Result Diagrams: 10/20/19 23:50
[2019-10-22 09:22] VITALS: BP 110/73
[2019-10-22] MEDS: DOCUSATE SODIUM 100 MG CAPSULE PO SCH (11:51)
--- NOTE | 2019-10-22 12:29 | Labor Flowsheet ---
Labor Flowsheet Datetime Report Generated by CPN: 10/22/2019 12:29 Datetime: 10/22/2019 09:13 VITAL SIGNS NBP Sys/Jadyn/Mean (mmHg): 120 : 75 : 87 Pulse: 99 LaborFlag: Labor Datetime: 10/21/2019 12:05 SpO2 (%): 98 Datetime: 10/21/2019 05:27 Respirations: 18 Temperature (C): 36.8 Temperature Route: Oral Datetime: 10/21/2019 04:45 Vital Sign Comments: mother . Arm flexed Datetime: 10/21/2019 03:18 Stage 2 Comments: Spontaneous del of intact placenta. Routine discard Datetime: 10/21/2019 03:07 UTERINE ACTIVITY Monitor Mode: External Frequency (min): 1.5-3 Quality: Strong Duration (sec): 45-150 Pattern: Normal: <= 5 Contractions in 10 Minutes Resting Tone (Palpate): Relaxed FHR Baseline Rate : 125 Variability: Minimal - Undetectable to <=5 bpm Decelerations: Variable Actions for Decelerations: Hands and Knees Datetime: 10/21/2019 03:00 ASSESSMENT A Monitor Mode: Telemetry Comments: HR 120s, w/variables HR down lowest to 60s lasting 40-80sec Datetime: 10/21/2019 02:58 PATIENT CARE Patient Position/Activity: Hands-Knees Datetime: 10/21/2019 02:49 STAGE 2 Pushing: Urge to Push Pushing Position: Pushing with Contractions Datetime: 10/21/2019 02:48 VAGINAL EXAM Dilatation (cm): 10.0 Effacement (%): 100 Station: 1 Datetime: 10/21/2019 01:09 Communication Comments: CNM at side of jacuzzi Datetime: 10/21/2019 01:03 Patient Care Comments: jacuzzi Datetime: 10/21/2019 01:01 Exam by: Derek CNM Datetime: 10/21/2019 00:48 COMMUNICATION Communication: Provider at Bedside Datetime: 10/21/2019 00:40 Monitor Interventions for FHR: Ultrasound Adjusted Datetime: 10/21/2019 00:30 Contraction Comments: Difficulty picking up ctx d/t maternal movement and positioning. Datetime: 10/21/2019 00:07 I/O Interventions: Up to BR Datetime: 10/20/2019 23:53 Stage of : Labor
== END 2019-10-22 12:00 | disposition home or self-care (01) | DRG 807 ==
LOC: WFO 21:53 → FBP 21:55 → WFO 23:12 → FBP 23:13
PROVIDERS: ADMIT Advanced Practice Midwife; ATTEND Advanced Practice Midwife
PROC: 10E0XZZ Delivery of Products of Conception, External Approach (ICD-10-PCS; principal; 2019-10-21)
PROC: 0KQM0ZZ Repair Perineum Muscle, Open Approach (ICD-10-PCS; 2019-10-21)
DX: O48.0 Post-term pregnancy (principal); Z37.0 Single live birth; O70.1 Second degree perineal laceration during delivery; Z3A.40 40 weeks gestation of pregnancy
CPT/HCPCS: 36415; 85025; 99213; A9270; Q0162

== ENCOUNTER 2019-11-20 08:00 | Outpatient (CLI) | payer BC ==
[2019-11-20 15:02] LABS: BASOPHILS % (AUTO) 0.1 %; EOSINOPHILS % (AUTO) 0.1 %; HGB - HEMOGLOBIN 13.7 g/dL (12.0-16.0); LYMPHOCYTES # (AUTO) 1.2 10^3/uL (1.5-3.5); LYMPHOCYTES % (AUTO) 15.3 %; MEAN CORPUSCULAR HEMOGLOBIN 29.9 pg (27.0-31.0); MEAN CORPUSCULAR HGB CONC 32.2 g/dL (32.0-36.0); MONOCYTES # (AUTO) 0.3 10^3/uL (0.0-1.0); MONOCYTES % (AUTO) 3.8 %; NEUTROPHILS # (AUTO) 6.5 10^3/uL (1.5-6.6); NEUTROPHILS % (AUTO) 80.2 %; PLT - PLATELET COUNT 178 10^3/uL (130-450); RED BLOOD COUNT 4.58 10^6/uL (4.20-5.40); RED CELL DISTRIBUTION WIDTH 12.2 % (12.0-15.0); WHITE BLOOD COUNT 8.1 x10^3/uL (4.8-10.8)
[2019-11-20 15:34] LABS: CALCIUM 9.1 mg/dL (8.5-10.3); CREATININE 0.8 mg/dL (0.4-1.0)
== END 2019-11-20 23:59 | disposition home or self-care (01) ==
LOC: LAB.S 08:00
PROVIDERS: ATTEND Emergency Medicine
DX: R50.9 Fever, unspecified (principal); N39.0 Urinary tract infection, site not specified
CPT/HCPCS: 36415; 80048; 85025

== ENCOUNTER 2019-11-20 11:31 | Outpatient (CLI) | payer BC | END 2019-11-20 23:59 | disposition home or self-care (01) | LOC: LAB.R 11:31 | PROVIDERS: ATTEND Emergency Medicine | DX: R50.9 Fever, unspecified (principal); N39.0 Urinary tract infection, site not specified; Z20.828 Contact with and (suspected) exposure to other viral communicable diseases | CPT/HCPCS: 36415; 80048; 85025; 87086 ==

== ENCOUNTER 2019-12-09 12:03 | Outpatient (CLI) | payer BC ==
[2019-12-09 12:19] LABS: BASOPHILS % (AUTO) 0.3 %; BILIRUBIN,URINE NEGATIVE (NEGATIVE); EOSINOPHILS # (AUTO) 0.4 10^3/uL (0.0-0.7); EOSINOPHILS % (AUTO) 5.1 %; GLUCOSE, URINE (UA) NEGATIVE (NEGATIVE); HGB - HEMOGLOBIN 13.3 g/dL (12.0-16.0); KETONES,URINE (UA) NEGATIVE (NEGATIVE); LEUKOCYTE ESTERASE, URINE NEGATIVE (NEGATIVE); LYMPHOCYTES # (AUTO) 2.4 10^3/uL (1.5-3.5); LYMPHOCYTES % (AUTO) 33.7 %; MEAN CORPUSCULAR HEMOGLOBIN 29.6 pg (27.0-31.0); MEAN CORPUSCULAR HGB CONC 32.6 g/dL (32.0-36.0); MEAN CORPUSCULAR VOLUME 90.9 fL (81.0-99.0); MEAN PLATELET VOLUME 10.9 fL (7.9-10.8); MONOCYTES # (AUTO) 0.5 10^3/uL (0.0-1.0); MONOCYTES % (AUTO) 6.3 %; NEUTROPHILS # (AUTO) 3.9 10^3/uL (1.5-6.6); NEUTROPHILS % (AUTO) 54.3 %; NITRITE,URINE NEGATIVE (NEGATIVE); OCCULT BLOOD,URINE SMALL (NEGATIVE); PLT - PLATELET COUNT 171 10^3/uL (130-450); PROTEIN,URINE NEGATIVE (NEGATIVE); RED BLOOD COUNT 4.49 10^6/uL (4.20-5.40); RED CELL DISTRIBUTION WIDTH 12.1 % (12.0-15.0); UROBILINOGEN,URINE 0.2 (NORMAL) E.U./dL (NORMAL); WHITE BLOOD COUNT 7.1 x10^3/uL (4.8-10.8)
[2019-12-09 12:28] LABS: BACTERIA,URINE None Seen /HPF (None Seen); CLARITY,URINE CLEAR (CLEAR); RBC,URINE 0-5 /HPF (0-5); SQUAMOUS EPITHELIAL CELL,UR NONE SEEN (<= Few)
[2019-12-09 12:46] LABS: ALBUMIN 4.1 g/dL (3.2-5.5); ALBUMIN/GLOBULIN RATIO 1.3 (1.0-2.2); BILIRUBIN,TOTAL 1.4 mg/dL (0.2-1.0); CREATININE 0.7 mg/dL (0.4-1.0); CRP - C-REACTIVE PROTEIN 2.5 mg/dL (0-1.0); TOTAL PROTEIN 7.2 g/dL (6.7-8.2)
[2019-12-09 12:52] LABS: CALCIUM 9.3 mg/dL (8.5-10.3)
--- NOTE | 2019-12-09 13:36 | XRAY Report ---
PROCEDURE: Chest 2 View X-Ray INDICATIONS: COUGH, SORE THROAT TECHNIQUE: 2 view(s) of the chest. COMPARISON: None. FINDINGS: Surgical changes and devices: None. Lungs and pleura: No pleural effusions or pneumothorax. Lungs are clear. Mediastinum: Mediastinal contours are normal. Heart size is normal. Bones and chest wall: No suspicious bony abnormalities. Soft tissues appear unremarkable. IMPRESSION: No pneumonia found. Source of cough is not identified. Reviewed by: Axel Hernandez MD on 12/09/2019 1:35 PM PDT Approved by: Axel Hernandez MD on 12/09/2019 1:35 PM PDT Station ID: [id number]
== END 2019-12-09 12:04 | disposition home or self-care (01) ==
LOC: DI 12:03
PROVIDERS: ATTEND Obstetrics & Gynecology
DX: R50.9 Fever, unspecified (principal)
CPT/HCPCS: 36415; 71046; 80053; 81001; 85025; 85651; 86140; 86769; 87086

== ENCOUNTER 2019-12-24 15:30 | Outpatient (CLI) | payer BC | END 2019-12-24 23:59 | disposition home or self-care (01) | LOC: LAB.R 15:30 | PROVIDERS: ATTEND Obstetrics & Gynecology | DX: N39.0 Urinary tract infection, site not specified (principal) | CPT/HCPCS: 87086 ==

== ENCOUNTER 2022-01-14 12:41 | Outpatient (CLI) | payer BC | END 2022-01-14 12:42 | disposition home or self-care (01) | LOC: LAB 12:41 | PROVIDERS: ATTEND Nurse Practitioner | DX: Z32.00 Encounter for pregnancy test, result unknown (principal) | CPT/HCPCS: 36415; 84702 ==

== ENCOUNTER 2022-01-17 17:35 | Outpatient (CLI) | payer BC ==
[2022-01-17 21:40] LABS: FOLLICLE STIMULATING HORMONE 7.28 mIU/mL
[2022-01-17 21:41] LABS: LUTEINIZING HORMONE 8.73 mIU/mL
[2022-01-19 06:10] LABS: ESTRADIOL 28.4 pg/mL (.); PROGESTERONE 0.5 ng/mL (.)
[2022-01-19 19:07] LABS: FREE TESTOSTERONE(DIRECT) 7.8 pg/mL (0.0-4.2)
== END 2022-01-17 17:36 | disposition home or self-care (01) ==
LOC: LAB.N 17:35
PROVIDERS: ATTEND Nurse Practitioner
DX: N97.0 Female infertility associated with anovulation (principal)
CPT/HCPCS: 36415; 82397; 82627; 82670; 83001; 83002; 84144; 84402; 84403

== ENCOUNTER 2022-04-14 09:20 | Outpatient (CLI) | payer BC | END 2022-04-14 09:21 | disposition home or self-care (01) | LOC: LAB 09:20 | PROVIDERS: ATTEND Nurse Practitioner Obstetrics & Gynecology | DX: O20.0 Threatened abortion (principal) | CPT/HCPCS: 36415; 84702 ==

== ENCOUNTER 2022-04-16 07:20 | Outpatient (CLI) | payer BC | END 2022-04-16 07:21 | disposition home or self-care (01) | LOC: LAB 07:20 | PROVIDERS: ATTEND Nurse Practitioner Obstetrics & Gynecology | DX: O20.0 Threatened abortion (principal) | CPT/HCPCS: 36415; 84702 ==

== ENCOUNTER 2022-05-01 14:40 | Outpatient (CLI) | payer BC | END 2022-05-01 14:41 | disposition home or self-care (01) | LOC: LAB 14:40 | PROVIDERS: ATTEND Nurse Practitioner Obstetrics & Gynecology | DX: O20.0 Threatened abortion (principal) | CPT/HCPCS: 36415; 84702 ==

== ENCOUNTER 2022-05-04 10:15 | Outpatient (CLI) | payer BC | END 2022-05-04 10:16 | disposition home or self-care (01) | LOC: LAB 10:15 | PROVIDERS: ATTEND Nurse Practitioner Obstetrics & Gynecology | DX: O20.0 Threatened abortion (principal) | CPT/HCPCS: 36415; 84702 ==

== ENCOUNTER 2022-05-04 14:18 | Outpatient (CLI) | payer BC ==
--- NOTE | 2022-05-04 15:56 | Ultrasound Report ---
PROCEDURE: Pelvic w/Transvaginal INDICATIONS: INCOMPLETE SPONTANEOUS WITH OTHER COMPLIC. Beta-hCG levels have been fluctuati ng. Beta-hCG level today is 199, previously 166. TECHNIQUE: Real-time scanning was performed of the pelvic organs, with image documentation. Additional endovagi nal scanning was necessary due to incomplete visualization of the adnexal and endometrial structures by transabdominal scanning. COMPARISON: None. FINDINGS: Uterus: Uterus is anteverted and normal in size at 9.9 x 4.4 x 6.7 cm. The myometrium is homogeneou s. The endometrium measures 7 mm in combined thickness. No fibroids Ovaries: The right ovary measures 4.9 x 2.6 x 2.4 cm, with a calculated ovarian volume of 15.7 cc. The left ovary measures 6.2 x 4.9 x 4.6 cm, with a calculated ovarian volume of 73.2 cc. There is a c ystic structure in the left adnexa with a soft tissue component that has flow within it. This structu re in total measures 4.4 x 3.4 x 3.2 cm. It is suspicious for an ectopic . Other: No pathologic free abdominal or pelvic fluid. IMPRESSION: Findings are suspicious for a left adnexal ectopic . Above discussed with BEVERLY Gallo on 05/04/2022 at 1551 hours. Reviewed by: Michel Hidalgo MD on 05/04/2022 3:55 PM PST Approved by: Michel Hidalgo MD on 05/04/2022 3:55 PM PST Station ID: [id number]
== END 2022-05-04 14:19 | disposition home or self-care (01) ==
LOC: DI 14:18
PROVIDERS: ATTEND Nurse Practitioner Obstetrics & Gynecology
DX: O03.39 Incomplete spontaneous abortion with other complications (principal)

== ENCOUNTER 2022-05-05 07:11 | Day surgery (SDC) | payer BC ==
[2022-05-05] MEDS ORDERED: KETOROLAC 30 MG/ML VIAL IVP ONE (07:12)
[2022-05-05] MEDS ORDERED: ONDANSETRON 4 MG/2 ML VIAL IVP ONE (07:12)
[2022-05-05] MEDS ORDERED: ROCURONIUM 50 MG/5 ML VIAL IVP ONE (07:12)
[2022-05-05] MEDS ORDERED: PROPOFOL 200 MG/20 ML VIAL IVP ONE (07:12)
[2022-05-05] MEDS ORDERED: HYDROmorphone 1 MG/ML CARPUJECT IVP ONE (07:12)
[2022-05-05] MEDS ORDERED: fentaNYL 100 MCG/2 ML VIAL IVP ONE (07:12)
[2022-05-05] MEDS ORDERED: SUGAMMADEX 200 MG/2 ML VIAL IVP ONE (07:12)
[2022-05-05] MEDS ORDERED: MIDAZOLAM 2 MG/2 ML VIAL IVP ONE (07:12)
[2022-05-05] MEDS ORDERED: DEXAMETHASONE 4 MG/ML VIAL IVP ONE (07:12)
[2022-05-05 09:39] LABS: BASOPHILS % (AUTO) 0.2 %; EOSINOPHILS # (AUTO) 0.1 10^3/uL (0.0-0.7); EOSINOPHILS % (AUTO) 2.2 %; HCT - HEMATOCRIT 40.9 % (37.0-47.0); HGB - HEMOGLOBIN 13.4 g/dL (12.0-16.0); LYMPHOCYTES # (AUTO) 2.7 10^3/uL (1.5-3.5); LYMPHOCYTES % (AUTO) 53.5 %; MEAN CORPUSCULAR HEMOGLOBIN 28.6 pg (27.0-31.0); MEAN CORPUSCULAR HGB CONC 32.8 g/dL (32.0-36.0); MEAN CORPUSCULAR VOLUME 87.2 fL (81.0-99.0); MEAN PLATELET VOLUME 10.7 fL (7.9-10.8); MONOCYTES # (AUTO) 0.3 10^3/uL (0.0-1.0); MONOCYTES % (AUTO) 5.9 %; NEUTROPHILS # (AUTO) 1.9 10^3/uL (1.5-6.6); PLT - PLATELET COUNT 224 10^3/uL (130-450); RED BLOOD COUNT 4.69 10^6/uL (4.20-5.40); RED CELL DISTRIBUTION WIDTH 12.8 % (12.0-15.0); WHITE BLOOD COUNT 5.1 x10^3/uL (4.8-10.8)
[2022-05-05] MEDS ORDERED: LACTATED RINGERS 1,000 ML IV SCH ×2 (10:00→11:00)
[2022-05-05] MEDS ORDERED: SCOPOLAMINE PATCH TOP ONE (10:19)
--- NOTE | 2022-05-05 10:22 | SURGERY HX AND PHYSICAL(T) ---
Surgical History & Physical - Chief Complaint/HPI Chief Complaint: Left ectopic History of Present Illness: 32yo presents for scheduled operative laparoscopy for left adnexal ectopic , not ruptured. She has been follow up Danay Contreras CNM for fertility and then early . She started to have irregular vaginal bleeding and so HCG were monitored. Last HCG 199, per CNM had decreased from ~400. US was obtained and concerning for 4cm left adnexal mass, suspicious for ectopic . Discussed options with patient including expectant and methotrexate and surgical. Due large mass concerning for ectopic, surgical management chosen. - PMH/PSH/Social Hx Is Patient ?: Yes (Ectopic) Smoking Status: Never smoker Frequency: Occasional Does the pt have substance abuse?: No - Home Meds and Allergies Home Medications: No Known Home Medications 12/09/19 Allergies/Adverse Reactions: Allergies Allergy/AdvReac Type Severity Reaction Status Date / Time doxycycline Allergy Unknown Verified 12/09/19 17:18 Penicillins Allergy Unknown Verified 12/09/19 17:18 Sulfa (Sulfonamide Allergy Unknown Verified 12/09/19 17:18 Antibiotics) - Vital Signs Temperature: 97.9 F Respiratory Rate: 16 O2 Saturation: 99 Height: 5 ft 5 in - Physical Exam General Appearance: positive: No acute distress Eyes Bilatera: positive: EOMI Respiratory: positive: No respiratory distress Abdomen: positive: Non-tender Extremities: positive: Non-tender Neurologic/Psychiatric: positive: Oriented x3 - Patient Review Patient Review: Problems were reviewed with the patient during this visit. Medications were reviewed with the patient during this visit. Allergies were reviewed this patient during this visit. Pertinent Tests Reviewed: All pertitent test for this patient were reviewed. - Assessment & Plan Assessment and Plan: 32yo with likely left adnexal ectopic - R/b/a discussed and informed consent obtained for laparoscopy, possible salpingectomy or oophorectomy. - Anticipate discharge home today
[2022-05-05] MEDS ORDERED: HYDROmorphone 0.5 MG/0.5 ML SYRINGE IVP PRN (10:24)
[2022-05-05] MEDS ORDERED: MORPHINE 2 MG/ML CARPUJECT IVP PRN (10:24)
[2022-05-05] MEDS ORDERED: NALOXONE 0.4 MG/ML VIAL IVP PRN (10:24)
[2022-05-05] MEDS ORDERED: ONDANSETRON 4 MG/2 ML VIAL IVP PRN ×2 (10:24→15:54)
[2022-05-05] MEDS ORDERED: ATROPINE ABBOJECT 1 MG/10 ML SYRINGE IVP PRN (10:24)
[2022-05-05] MEDS ORDERED: fentaNYL 100 MCG/2 ML VIAL IVP PRN (10:24)
--- NOTE | 2022-05-05 10:24 | ANESTHESIA ---
Pre-Anesthesia VS, & Labs - Diagnosis ectopic - Procedure diagnostic laparoscopy Vital Signs: Temp Pulse Resp BP Pulse Ox O2 Flow Rate 36.6 C 67 16 119/76 99 05/05/22 10:22 05/05/22 09:53 05/05/22 10:22 05/05/22 09:53 05/05/22 10:22 Height: 5 ft 5 in - NPO >8 hours - Is Patient ?: Yes - Lab Results Current Lab Results: Laboratory Tests 05/05/22 09:10: WBC 5.1, RBC 4.69, Hgb 13.4, Hct 40.9, MCV 87.2, MCH 28.6, MCHC 32.8, RDW 12.8, Plt Count 224, MPV 10.7, Neut # (Auto) 1.9, Lymph # (Auto) 2.7, Beadle # (Auto) 0.3, Eos # (Auto) 0.1, Baso # (Auto) 0.0, Absolute Nucleated RBC 0.00, Nucleated RBC % 0.0 Lab results reviewed: Yes Fish Bones: 05/05/22 09:10 Home Medications and Allergies Active Medications Lactated Ringer's (Lr) 1,000 mls @ 0 mls/hr IV .Q0M NING No Known Home Medications 12/09/19 Allergies/Adverse Reactions: Allergies Allergy/AdvReac Type Severity Reaction Status Date / Time doxycycline Allergy Unknown Verified 12/09/19 17:18 Penicillins Allergy Unknown Verified 12/09/19 17:18 Sulfa (Sulfonamide Allergy Unknown Verified 12/09/19 17:18 Antibiotics) Anes History & Medical History - Anesthetic History Anesthesia Complications: reports: No previous complications - Medical History Cardiovascular: reports: None Pulmonary: reports: None Gastrointestinal: reports: None Urinary: reports: None Neuro: reports: None Musculoskeletal: reports: None Endocrine/Autoimmune: reports: None Blood Disorders: reports: None Skin: reports: None Smoking Status: Never smoker Psychosocial: reports: No issues indicated History of Cancer?: No - Surgical History Eyes Ears Nose Throat (EENT): reports: Tonsil/Adenoidectomy Exam General: Alert, Oriented x3, Cooperative, No acute distress Dental: WNL Mouth Openin Fingerbreadth Neck Mobility: Normal Mallampati classification: I Thyromental Distance: 4-6 cm Mental/Cognitive Status: Alert/Oriented X3, Normal for patient Plan Anesthesia Type: General Regional Block: Per Surgeon's request for Post Op pain control Consent for Procedure(s) Verified and Reviewed: Yes Code Status: Attempt Resuscitation ASA classification: 1-Healthy patient Is this case an emergency?: No
--- NOTE | 2022-05-05 13:22 | OPERATIVE REPORT ---
Operative Report - General Procedure Date: 05/05/22 Planned Procedure: Operative laparoscopy, removal of ectopic Pre-Op Diagnosis: Ectopic Procedure Performed: Laparoscopic right salpingectomy Post Op Diagnosis: Right tubal ectopic , left ovarian cyst - Procedure Note Primary Surgeon: Rica Carroll DO Secondary Surgeon: Cheryl Carrington NP Anesthesia Provider: Chrystal Henson CRNA Anesthesia Technique: General ET tube Pathology: Right fallopian tube Estimated Blood Loss (mL): 50 (50cc hemoperitoneum) Indications: Ectopic Findings: Right fallopian tube dilated and bleeding, likely location of ectopic Left ovarian cyst noted, likely corpus luteum cyst Normal appearing uterus, left fallopian tube, and right ovary Complications: None - Other Other Information/Narrative: Patient taken to OR where GETA obtained without difficulty. Placed in dorsal lithotomy position and prepped and draped in sterile fashion. Pawling speculum placed in vagina and Hulka uterine manipulator placed. Speculum removed. Attention then turned to abdomen where 5mm skin incision made in umbilical fold. Veress needle carefully introduced into peritoneal cavity. Intraperitoneal placement confirmed with drop test and drop in intraabdominal pressure with CO2 gas insufflation. Trocar and sleeve advanced without difficulty into abdomen where intraabdominal placement confirmed with laparoscope. Two additional 5mm incisions made in pelvis bilaterally and trocars introduced under direct visualization. 2% lidocaine with epinephrine injection prior to skin incisions. Aforementioned findings noted. Left ovarian cyst noted, did not appear suspicious for ectopic . Right fallopian tube mass with likely ectopic noted. LigaSure device used for transection along right mesosalpinx up to uterine cornu. 12mm trocar placed as mass could not fit through 5mm. Endocatch bag placed and mass removed through 12mm incision. Hemostasis at all dissection sites. Pelvis was copiously irrigated and suctioned. John Tomason used to close 12mm incision with 0-vicryl. Trocars removed under direct visualization. Pneumoperitoneum released. Umbilical trocar removed. Incisions x4 were closed with 4-0 monocryl and dermabond. Hulka manipulator and Santos catheter removed. Sponge, lap, needle, and instrument counts were correct x2. Patient taken to PACU in stable condition.
[2022-05-05] MEDS ORDERED: traMADol 50 MG TABLET PO ONE (14:00)
[2022-05-05] MEDS ORDERED: ACETAMINOPHEN 500 MG TABLET PO ONE (14:00)
[2022-05-05 15:03] LABS: HCT - HEMATOCRIT 37.2 % (37.0-47.0); MEAN CORPUSCULAR HEMOGLOBIN 28.8 pg (27.0-31.0); MEAN CORPUSCULAR HGB CONC 32.3 g/dL (32.0-36.0); MEAN CORPUSCULAR VOLUME 89.2 fL (81.0-99.0); MEAN PLATELET VOLUME 10.3 fL (7.9-10.8); RED BLOOD COUNT 4.17 10^6/uL (4.20-5.40); RED CELL DISTRIBUTION WIDTH 12.7 % (12.0-15.0); WHITE BLOOD COUNT 9.4 x10^3/uL (4.8-10.8)
[2022-05-11 09:46] VITALS: BP 106/62
== END 2022-05-05 17:50 | disposition home or self-care (01) ==
LOC: SDS 07:11 → FBP 08:19 → SDS 08:19 → EDSTATUS 15:02 → FBP 17:50 → SDS 17:50
PROVIDERS: ATTEND Obstetrics & Gynecology
PROC: 0UT54ZZ Resection of Right Fallopian Tube, Percutaneous Endoscopic Approach (ICD-10-PCS; 2022-05-05)
PROC: 10T24ZZ Resection of Products of Conception, Ectopic, Percutaneous Endoscopic Approach (ICD-10-PCS; principal; 2022-05-05 12:20)
DX: O00.101 Right tubal pregnancy without intrauterine pregnancy (principal); N83.202 Unspecified ovarian cyst, left side
CPT/HCPCS: 59151; 84702; 85025; 85027; 86850; 86900; 86901; A9270; J1170; J3490; J7120

== ENCOUNTER 2022-05-10 14:32 | Outpatient (CLI) | payer BC | END 2022-05-10 14:33 | disposition home or self-care (01) | LOC: LAB 14:32 | PROVIDERS: ATTEND Obstetrics & Gynecology | DX: O00.101 Right tubal pregnancy without intrauterine pregnancy (principal) | CPT/HCPCS: 36415; 84702 ==

== ENCOUNTER 2022-07-04 18:55 | Outpatient (CLI) | payer BC ==
--- NOTE | 2022-07-05 12:15 | Ultrasound Report ---
PROCEDURE: Pelvic w/Transvaginal INDICATIONS: LEFT OVARIAN CYST TECHNIQUE: Real-time scanning was performed of the pelvic organs, with image documentation. Additional endovagi nal scanning was necessary due to incomplete visualization of the adnexal and endometrial structures by transabdominal scanning. COMPARISON: 05/04/[address] of abdomen and pelvis dated 12/09/2019. FINDINGS: Uterus: Uterus is anteverted and enlarged in size at 9.6 x 3.9 x 5.3 cm. The myometrium is homogene ous. No discrete uterine fibroid is seen. The endometrium measures 5.8 mm in combined thickness. Ech ogenic focus is noted involving endometrium measures 7 x 3.6 x 3 mm in size. No internal vascularity is seen. Ovaries: The right ovary measures 3.8 x 2.6 x 3.5 cm, with a calculated ovarian volume of 17.8 cc. The left ovary measures 3.8 x 1.9 x 3.6 cm, with a calculated ovarian volume of 13.7 cc. The ovaries have a normal sonographic appearance. Greater than 12 follicles can be seen in each ovary. No adne xal masses are seen. Other: No pathologic free abdominal or pelvic fluid. IMPRESSION: 1. Mildly enlarged uterus. No discrete uterine fibroid. 2. 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 No internal vascularity is seen. No endometrial fluid. 3. Previously noted left ovarian complex cyst is no longer seen. No solid-appearing ovarian lesion. 4. Greater than 12 follicles are seen in each ovary which can be seen associated with polycystic ovar caron syndrome suggest clinical correlation. Reviewed by: Jostin Okeefe MD on 07/05/2022 12:14 PM PST Approved by: Jostin Okeefe MD on 07/05/2022 12:14 PM PST Station ID: [id number]
== END 2022-07-04 18:56 | disposition home or self-care (01) ==
LOC: DI 18:55
PROVIDERS: ATTEND Obstetrics & Gynecology
DX: N85.2 Hypertrophy of uterus (principal); N85.4 Malposition of uterus; N85.9 Noninflammatory disorder of uterus, unspecified

== ENCOUNTER 2022-09-13 07:53 | Outpatient (CLI) | payer BC ==
[2022-09-13 08:31] LABS: T4 (THYROXINE) 6.84 ug/dL (6.09-12.23)
[2022-09-13 08:35] LABS: THYROID STIMULATING HORMONE 1.63 uIU/mL (0.34-5.60)
[2022-09-13 08:39] LABS: PROLACTIN 10.7 ng/mL
== END 2022-09-13 07:54 | disposition home or self-care (01) ==
LOC: LAB 07:53
PROVIDERS: ATTEND Obstetrics & Gynecology
DX: N97.0 Female infertility associated with anovulation (principal)
CPT/HCPCS: 36415; 84144; 84146; 84436; 84443

== ENCOUNTER 2022-10-31 17:17 | Outpatient (CLI) | payer BC | END 2022-10-31 17:18 | disposition home or self-care (01) | LOC: LAB 17:17 | PROVIDERS: ATTEND Obstetrics & Gynecology | DX: N97.0 Female infertility associated with anovulation (principal) | CPT/HCPCS: 36415; 84144 ==

== ENCOUNTER 2022-11-17 07:01 | Outpatient (CLI) | payer BC ==
--- NOTE | 2022-11-17 09:38 | Ultrasound Report ---
PROCEDURE: Transvaginal INDICATIONS: ENCOUNTER FOR ASSISTED REPRODCTV FERTILITY PROCEDU TECHNIQUE: Real-time endovaginal scanning was performed of the pelvic organs, with image documentation. COMPARISON: None. FINDINGS: Uterus: Uterus is anteverted and normal in size at 9.7 x 4.2 x 5.6 cm. The myometrium is homogeneou s. The endometrium measures 9.6 mm in combined thickness. A 9 x 4 x 6 mm hyperechoic focus is prese nt within the endometrium likely a calcification. Ovaries: The right ovary measures 2.5 x 2.2 x 4.1 cm, with a calculated ovarian volume of 12.1 cc. The right o vary has greater than 12 follicles, 22 follicles are counted. A dominant follicle measures 1.7 x 1.4 x 1.9 cm. The left ovary measures 3.8 x 2.0 x 2.0 cm, with a calculated ovarian volume of 7.8 cc. The left ova ry has greater than 12 follicles, 18 follicles are counted. A dominant follicle measures 1.7 x 1.3 x 1.3 cm. Trace free fluid in the right adnexa appears physiologic. IMPRESSION: 1. Greater than 12 follicles in each ovary meets ultrasound criteria for polycystic ovarian syndrome. 2. No acute or other significant abnormality. Reviewed by: Herb Felix on 11/17/2022 8:36 AM IOANA Approved by: Herb Felix on 11/17/2022 8:36 AM IOANA Station ID: [id number]
== END 2022-11-17 07:02 | disposition home or self-care (01) ==
LOC: DI 07:01
PROVIDERS: ATTEND Obstetrics & Gynecology Reproductive Endocrinology
DX: Z31.83 Encounter for assisted reproductive fertility procedure cycle (principal); E28.2 Polycystic ovarian syndrome

== ENCOUNTER 2023-01-18 16:30 | Outpatient (CLI) | payer BC ==
--- NOTE | 2023-01-18 17:38 | Ultrasound Report ---
PROCEDURE: Transvaginal INDICATIONS: ENCOUNTER FOR ASSISTED REPRODCTV FERTILITY PROCEDU TECHNIQUE: Real-time endovaginal scanning was performed of the pelvic organs, with image documentation. COMPARISON: None. FINDINGS: Uterus: Uterus is anteverted and normal in size at 6.9 x 4.3 x 4.9 cm. The myometrium is homogeneou s. The endometrium measures mm in combined thickness. Ovaries: The right ovary measures 4.4 x 1.9 x 1.8 cm, with a calculated ovarian volume of 7.6 cc. T he left ovary measures 3.1 x 2.1 x 3.6 cm, with a calculated ovarian volume of 12.9 cc. The ovaries have a normal sonographic appearance. Greater than 12 follicles are present in each ovary. There is a dominant follicle versus cyst on the right measuring 1.2 x 0.8 x 0.8 cm. No adnexal masses are see n. No cystic lesions measuring greater than 3 cm. Other: No pathologic free abdominal or pelvic fluid. IMPRESSION: 1. Multiple bilateral follicles, greater than 12 H ovary consistent with polycystic ovarian syndrome. 2. Dominant follicle in the left ovary. 3. No acute abnormality. 4. No intrauterine identified. Reviewed by: Herb Felix on 01/18/2023 5:36 PM PDT Approved by: Herb Felix on 01/18/2023 5:36 PM PDT Station ID: [id number]
== END 2023-01-18 16:31 | disposition home or self-care (01) ==
LOC: DI 16:30
PROVIDERS: ATTEND Obstetrics & Gynecology Reproductive Endocrinology
DX: Z31.83 Encounter for assisted reproductive fertility procedure cycle (principal)

== ENCOUNTER 2023-01-22 15:27 | Outpatient (CLI) | payer BC ==
--- NOTE | 2023-01-22 16:17 | Ultrasound Report ---
PROCEDURE: Transvaginal INDICATIONS: ENCOUNTER FOR ASSITED REPRODCTV FERTILITY PROCEDU TECHNIQUE: Real-time endovaginal scanning was performed of the pelvic organs, with image documentation. COMPARISON: 01/18/2023 FINDINGS: Uterus: Endometrium measures 8 to 9 mm, with nonspecific punctate echogenic foci. Trilaminar appearan ce. Ovaries: Right ovary measures a volume of 6 cc. Multiple (over 10) subcentimeter follicles. Left ovar y measures a volume of 7 cc. Multiple subcentimeter follicles (over 10). There is a dominant 1.8 x 1. 5 cm follicle. Other: No pathologic free fluid. IMPRESSION: Multiple subcentimeter bilateral ovarian follicles. Nonenlarged ovaries. A dominant follicle is seen in the left ovary. Trilaminar appearance of the endometrium. There are few nonspecific punctate echogenic foci. Reviewed by: Ricardo Car MD on 01/22/2023 4:15 PM PDT Approved by: Ricardo Car MD on 01/22/2023 4:15 PM PDT Station ID: [id number]
== END 2023-01-22 15:28 | disposition home or self-care (01) ==
LOC: DI 15:27
PROVIDERS: ATTEND Obstetrics & Gynecology Reproductive Endocrinology
DX: Z31.83 Encounter for assisted reproductive fertility procedure cycle (principal)

== ENCOUNTER 2023-04-08 17:14 | Outpatient (CLI) | payer BC | END 2023-04-08 17:15 | disposition home or self-care (01) | LOC: LAB 17:14 | PROVIDERS: ATTEND Obstetrics & Gynecology Reproductive Endocrinology | DX: Z32.00 Encounter for pregnancy test, result unknown (principal); Z31.41 Encounter for fertility testing | CPT/HCPCS: 36415; 84144; 84702 ==

== ENCOUNTER 2023-04-11 07:43 | Outpatient (CLI) | payer BC ==
[2023-04-11 08:37] LABS: THYROID STIMULATING HORMONE 2.43 uIU/mL (0.34-5.60)
== END 2023-04-11 07:44 | disposition home or self-care (01) ==
LOC: LAB 07:43
PROVIDERS: ATTEND Obstetrics & Gynecology Reproductive Endocrinology
DX: Z32.01 Encounter for pregnancy test, result positive (principal)
CPT/HCPCS: 36415; 84443; 84702

== ENCOUNTER 2023-04-13 11:13 | Outpatient (CLI) | payer BC | END 2023-04-13 11:14 | disposition home or self-care (01) | LOC: LAB 11:13 | PROVIDERS: ATTEND Obstetrics & Gynecology Reproductive Endocrinology | DX: Z32.00 Encounter for pregnancy test, result unknown (principal) | CPT/HCPCS: 36415; 84702 ==

== ENCOUNTER 2023-06-05 09:33 | Outpatient (CLI) | payer BC ==
[2023-06-05 10:09] LABS: BASOPHILS % (AUTO) 0.2 %; EOSINOPHILS # (AUTO) 0.1 10^3/uL (0.0-0.7); EOSINOPHILS % (AUTO) 1.9 %; HCT - HEMATOCRIT 40.7 % (37.0-47.0); HGB - HEMOGLOBIN 13.2 g/dL (12.0-16.0); LYMPHOCYTES # (AUTO) 2.1 10^3/uL (1.5-3.5); LYMPHOCYTES % (AUTO) 36.4 %; MEAN CORPUSCULAR HEMOGLOBIN 28.7 pg (27.0-31.0); MEAN CORPUSCULAR HGB CONC 32.4 g/dL (32.0-36.0); MEAN CORPUSCULAR VOLUME 88.5 fL (81.0-99.0); MEAN PLATELET VOLUME 10.7 fL (7.9-10.8); MONOCYTES # (AUTO) 0.3 10^3/uL (0.0-1.0); MONOCYTES % (AUTO) 4.4 %; NEUTROPHILS # (AUTO) 3.2 10^3/uL (1.5-6.6); NEUTROPHILS % (AUTO) 56.7 %; PLT - PLATELET COUNT 218 10^3/uL (130-450); RED CELL DISTRIBUTION WIDTH 13.2 % (12.0-15.0); WHITE BLOOD COUNT 5.7 x10^3/uL (4.8-10.8)
[2023-06-06 08:11] LABS: RPR Non Reactive (Non Reactive)
[2023-06-06 09:10] LABS: HBsAG SCREEN Negative (Negative); HCV AB Non Reactive (Non Reactive); VARICELLA-ZOSTER AB IGG 493 index (Immune >165)
[2023-06-06 18:08] LABS: HIV SCREEN 4TH GENERATION Non Reactive (Non Reactive)
== END 2023-06-05 09:34 | disposition home or self-care (01) ==
LOC: LAB 09:33
PROVIDERS: ATTEND Nurse Practitioner Obstetrics & Gynecology
DX: Z36.89 Encounter for other specified antenatal screening (principal)
CPT/HCPCS: 36415; 85025; 86592; 86762; 86787; 86803; 86850; 86900; 86901; 87340; 87389

== ENCOUNTER 2023-08-05 08:05 | Outpatient (CLI) | payer BC ==
--- NOTE | 2023-08-05 11:10 | Ultrasound Report ---
PROCEDURE: OB Anatomy Scan INDICATIONS: SUPERVISION OF OUTSIDE/PRIOR DATING DATA: Last menstrual period (LMP): 03/14/2023. LMP-based estimated date of delivery (HENRIQUE): 12/19/2023. First dating scan (date and location): 04/26/2023. Estimated date of delivery (HENRIQUE) from first dating scan: 12/19/2023. The below data below was generated using the ultrasound and working HENRIQUE of 12/19/2023 TECHNIQUE: Real-time scanning was performed of the fetus, with image documentation and biometric measurements. Endovaginal scanning: Not performed. COMPARISON: None. FINDINGS: General: A single living intrauterine gestation is present. Presentation: Vertex Placenta: Placental position is posterior, without previa. Amniotic fluid index: 12.5 cm, within normal limits for gestational age. heart rate: 144 beats per minute. Maternal cervical canal: 5.6 cm long; normal length is 2.5 cm or more. biometrics: Biparietal diameter: 4.9 cm, 21 weeks 0 days Head circumference: 18.5 cm, 20 weeks 6 days Abdominal circumference: 15.0 cm, 20 weeks 2 days Femur length: 3.2 cm, 19 weeks 6 days Estimated gestational age from initial scan: 20 weeks 4 days Composite gestational age from present scan: 20 weeks 4 days Estimated weight and percentile: 337 g, 25th percentile Measurement variability in biometric dating: +/- 10 days from 12-20 weeks gestation, +/- 2 weeks from 20-30 weeks gestation, +/- 3 weeks at 30 weeks gestation or later. Anatomic survey: Neuro: Ventricles are normal at less than 10 mm. Cisterna magna is normal at 3-11 mm. Cerebellum i s normal in size and morphology. Nuchal skin fold: Normal at less than 6 mm between 14 and 20 weeks gestational age. Face: Nose and lips, facial profile are normal. Spine: No evidence for spina bifida. Heart: 4-chambered heart is present, with normal ventricular outflow tracts. Diaphragm: Diaphragm is intact. Stomach: Left-sided stomach is present. Kidneys: No hydronephrosis. Normal is less than 5 mm in 2nd trimester, less than 7 mm in 3rd trimester. Cord: 3 vessel cord has orthotopic insertion. Bladder: Normal in size. Extremities: All 4 extremities are visualized. IMPRESSION: 1. Living second trimester intrauterine with no sonographic evidence of complications. 2. Current ultrasound age correlates with clinical dates. 3. Normal second trimester anatomy study. Reviewed by: Michel Hidalgo MD on 08/05/2023 11:08 AM PDT Approved by: Michel Hidalgo MD on 08/05/2023 11:08 AM PDT Station ID: [id number]
== END 2023-08-05 08:06 | disposition home or self-care (01) ==
LOC: DI 08:05
PROVIDERS: ATTEND Nurse Practitioner Obstetrics & Gynecology
DX: Z34.02 Encounter for supervision of normal first pregnancy, second trimester (principal); Z36.89 Encounter for other specified antenatal screening

== ENCOUNTER 2023-10-03 09:10 | Outpatient (CLI) | payer BC ==
[2023-10-03 10:25] LABS: HCT - HEMATOCRIT 40.2 % (37.0-47.0); HGB - HEMOGLOBIN 12.9 g/dL (12.0-16.0); MEAN CORPUSCULAR HEMOGLOBIN 29.5 pg (27.0-31.0); MEAN CORPUSCULAR HGB CONC 32.1 g/dL (32.0-36.0); MEAN PLATELET VOLUME 11.1 fL (7.9-10.8); RED BLOOD COUNT 4.37 10^6/uL (4.20-5.40); RED CELL DISTRIBUTION WIDTH 13.5 % (12.0-15.0); WHITE BLOOD COUNT 8.4 x10^3/uL (4.8-10.8)
== END 2023-10-03 09:11 | disposition home or self-care (01) ==
LOC: LAB 09:10
PROVIDERS: ATTEND Nurse Practitioner Obstetrics & Gynecology
DX: Z36.9 Encounter for antenatal screening, unspecified (principal)
CPT/HCPCS: 36415; 82950; 85027

== ENCOUNTER 2023-12-23 15:09 | Inpatient (IN) | payer BC ==
[~2023-12-23 15:09] MED LIST: CARBOPROST TROMETHAMINE 250 MCG/ML VIAL IM ONE; METHYLERGONOVINE 0.2 MG/ML VIAL ONE; OXYTOCIN/SODIUM CHLORIDE 500 ML IV ONE; miSOPROStoL 200 MCG TABLET ONE
[2023-12-23] MEDS ORDERED: diphenhydrAMINE INJ 50 MG/ML VIAL ONE (15:12)
[2023-12-23] MEDS ORDERED: AMPICILLIN 2 GM VIAL IV ONE (15:14)
[2023-12-23] MEDS ORDERED: LACTATED RINGERS 1,000 ML ONE (15:17)
[2023-12-23 15:36] LABS: BASOPHILS % (AUTO) 0.1 %; EOSINOPHILS # (AUTO) 0.1 10^3/uL (0.0-0.7); EOSINOPHILS % (AUTO) 0.9 %; HGB - HEMOGLOBIN 13.6 g/dL (12.0-16.0); LYMPHOCYTES % (AUTO) 24.1 %; MEAN CORPUSCULAR HEMOGLOBIN 29.9 pg (27.0-31.0); MEAN CORPUSCULAR HGB CONC 33.2 g/dL (32.0-36.0); MEAN CORPUSCULAR VOLUME 90.1 fL (81.0-99.0); MEAN PLATELET VOLUME 11.7 fL (7.9-10.8); MONOCYTES # (AUTO) 0.6 10^3/uL (0.0-1.0); MONOCYTES % (AUTO) 4.8 %; NEUTROPHILS # (AUTO) 8.5 10^3/uL (1.5-6.6); NEUTROPHILS % (AUTO) 69.4 %; PLT - PLATELET COUNT 158 10^3/uL (130-450); RED BLOOD COUNT 4.55 10^6/uL (4.20-5.40); RED CELL DISTRIBUTION WIDTH 13.6 % (12.0-15.0); WHITE BLOOD COUNT 12.3 x10^3/uL (4.8-10.8)
[2023-12-23] MEDS: OXYTOCIN/SODIUM CHLORIDE 500 ML IV PRN (15:40)
[2023-12-23] MEDS: diphenhydrAMINE INJ 50 MG/ML VIAL IVP PRN (15:50)
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
[2023-12-23] MEDS ORDERED: WITCH HAZEL/GLYCERIN 1 PAD TOP PRN (16:14)
[2023-12-23] MEDS ORDERED: HYDROCORTISONE 1% CREAM 28 GM TUBE PR PRN (16:14)
--- NOTE | 2023-12-23 16:32 | DELIVERY NOTE ---
Delivery Note - Labor Labor: positive: Spontaneous - Delivery Method Delivery Method: positive: Spontaneous vaginal delivery - Presentation Presentation: positive: Vertex, DERIC - right occiput anterior - Nuchal Cord Nuchal Cord: positive: None - Amniotic Fluid Description Amniotic Fluid Description: positive: Clear - Episiotomy Type Episiotomy Type: positive: None - Laceration Laceration: positive: None - : positive: Placed in direct skin contact with mother, Bulb syringe, Stimulated, Warmed, [place] used sex: positive: Male - Cord Cord: positive: 3 vessels - Placenta Placenta: positive: Intact, Spontaneous - Estimated Blood Loss Estimated Blood Loss (in cc): 824 (QBL) - Post Delivery Events Post Delivery Events: positive: No post delivery events - Delivery Comments (Free Text/Narrative) Delivery Comments (Free Text/Narrative): Labor: This 33yo @ 40.4wks gestation by LMP c/w 6.1wk U/S presented to [facility] in active labor. Cervix was 9/100/0 and vertex with grossly ruptured membranes and leakage of clear fluid that occurred prior to her arrival at 1415 per patient. FHR demonstrated a Category I pattern throughout labor. Precipitous labor course. Pt progressed to c/c/+1 and pushing @ 1505. : Normal SVB of viable male infant on 12/23/2023 @ 1520. No nuchal cord. The was stimulated, dried, and placed skin to skin. Apgars were 9/9 at 1 and 5 minutes respectively. The umbilical cord was allowed to stop pulsating at which time it was doubly clamped by CNM and cut by FOB. Cord blood was obtained. 3VC. Fundal massage and gentle cord traction applied for active management of the third stage. Placenta delivered spontaneously and intact at 1532. Pt declined initiation of pitocin via IV for active management of the third stage of labor initially. Following delivery of placenta there were noted to be 3 gushes of vaginally bleeding and one large expelled clot with fundal massage. QBL at that time measured 824mL and pt consented to initiation of IV pitocin. Fourth stage: Following administration of pitocin uterine fundus firm and there is no excessive bleeding. The perineum, vagina, and cervix were inspected and found to be intact with one minor perineal abrasion that was hemostatic and therefore left unrepaired. Tissues well approximated. initiated. Family bonding well. Both mother and baby were left in sterile condition.
[2023-12-23] MEDS ORDERED: LACTATED RINGERS 1,000 ML IV SCH (17:00)
[2023-12-23] MEDS: FAMOTIDINE 20 MG TABLET PO PRN (19:23)
[2023-12-23] MEDS: ACETAMINOPHEN 500 MG TABLET PO SCH (19:23)
[2023-12-23] MEDS: IBUPROFEN 800 MG TABLET PO SCH (19:24)
[2023-12-23] MEDS: DOCUSATE SODIUM 100 MG CAPSULE PO SCH (21:00)
--- NOTE | 2023-12-24 13:45 | PHARMACY PROGRESS NOTE ---
- Best Possible Medication History Admit Date and Time: 12/23/23 1521 Processed by: Pharmacy Medications reviewed in ED?: Yes Medication History completed: Yes Patient Interview: Completed As the person ultimately responsible for medication therapy, providers are able to order a medication from an existing home medication list in [facility] via the "Reconcile Routine" prior to Confirmation of that medication by field technical support consultant. Such practice is discouraged except when the physician, in their clinical judgment, deems that a medical need exists for a medication without regard to previous use.
[2023-12-24 14:22] VITALS: BP 112/63; O2SAT 99
--- NOTE | 2023-12-24 14:34 | Discharge Plan ---
Discharge Plan Problem Reviewed?: Yes Disposition: Home, Self Care Condition: Good Diet: Regular Activity Restrictions: No Restrictions Shower Restrictions: No Driving Restrictions: No Weight Bearing: Full Weight Instruction Topics: Vaginal After, Self Care No Smoking: If you smoke, Please STOP! Call for help. Follow-up with: Danay Contreras CNM, ARNP [Provider Admit Priv/Credential] - 1 Week
--- NOTE | 2023-12-24 14:41 | DISCHARGE SUMMARY ---
Discharge Summary Condition at Discharge: Good Discharge Disposition: 01 Home, Self Care - HOSPITAL COURSE Hospital Course: Date of Admission: 12/23/2023 Date of Discharge: 12/24/2023 Diagnosis on Admission: 1. 33yo @ 40.4wks gestation 2. Active labor 3. FHR Category I 4. GBS positive Diagnosis on Discharge: 1. 33yo PPD#1 s/p TSVB viable male 2. Beastfeeding 3. Normal recovery Brief history: She is a [facility] who presented on 12/23/2023 in active labor. Upon arrival cervix was 9/100/0 and veretx with grossly ruptured membranes and leakage of clear fluid. She progressed spontaneously to deliver a viable male infant on 12/23/2023 @ 1520 over intact perineum. Apgars were 9/9 at 1 and 5 minutes respectively. Following delivery she was noted to have moderately increased vaginal bleeding and following initial declination of active management of the third stage of labor the patient agreed to IV pitocin which was administered for hemostasis and bleeding was controlled. QBL 824mL. She has been doing well in her course. She is ambulating and tolerating a regular diet. She is urinating without difficulty and her lochia is normal. Her pain is well controlled with oral medications. She is without difficulty and her she is bonding well with her baby. She will be discharged home today on day #1 with instructions to continue taking her vitamin while and to continue taking her ibuprofen and tylenol over the counter as needed for pain management. She intends to follow up with myself in 1 week for routine care or sooner if needed. She has been given precautions to call if she has any worsening fevers, chills, abdominal pain, increased vaginal bleeding or foul smelling vaginal lochia. Physical exam: Normocephalic, atraumatic, heart RRR w/o M/G/R, lungs CTAB, abdomen soft and nontender with fundus firm at U, perineum intact, light lochia rubra, bilateral LE's trace edema, mood is good. - ALLERGIES Allergies/Adverse Reactions: Allergies Allergy/AdvReac Type Severity Reaction Status Date / Time doxycycline Allergy Unknown Verified 12/09/19 17:18 Penicillins Allergy Unknown Verified 12/09/19 17:18 Sulfa (Sulfonamide Allergy Unknown Verified 12/09/19 17:18 Antibiotics) - MEDICATIONS Home Medications: Ambulatory Orders Medication Instructions Recorded Confirmed No Known Home Medications 12/09/19 12/09/19 - LABS Result Diagrams: 12/23/23 14:55
--- NOTE | 2023-12-24 17:53 | Labor Flowsheet ---
Labor Flowsheet Datetime Report Generated by CPN: 12/24/2023 17:53 Datetime: 12/24/2023 14:12 VITAL SIGNS NBP Sys/Jadyn/Mean (mmHg): 112 : 63 : 75 Pulse: 72 Datetime: 12/24/2023 01:13 SpO2 (%): 99 Datetime: 12/23/2023 18:00 Stage of : Datetime: 12/23/2023 17:43 VAGINAL EXAM Membranes Ruptured Date/Time: 12/23/2023 14:20 Membranes Rupture Method: Spontaneous Amniotic Fluid Color: Clear Amniotic Fluid Amount: Moderate Amniotic Fluid Odor: Normal
== END 2023-12-24 17:45 | disposition home or self-care (01) | DRG 807 ==
LOC: WFO 15:09 → FBP 15:20 → WFO 15:21
PROVIDERS: ADMIT Nurse Practitioner Obstetrics & Gynecology; ATTEND Nurse Practitioner Obstetrics & Gynecology
PROC: 10E0XZZ Delivery of Products of Conception, External Approach (ICD-10-PCS; principal; 2023-12-23)
DX: O99.824 Streptococcus B carrier state complicating childbirth (principal); Z37.0 Single live birth; O72.1 Other immediate postpartum hemorrhage; Z3A.40 40 weeks gestation of pregnancy; Z88.0 Allergy status to penicillin; O71.82 Other specified trauma to perineum and vulva
CPT/HCPCS: 36415; 59409; 85025; A9270